=== PATIENT | male | born 1995 | race Caucasian/White ===

== ENCOUNTER 2024-04-01 13:55 | Emergency (ER) | payer OTHER ==
[~2024-04-01] VITALS: Ht 185.4 cm; Wt 88.7 kg
[2024-04-01 13:58] VITALS: BP 153/83; TEMP 97.8; O2SAT 99
[2024-04-01] MEDS ORDERED: ACET-683 PO (14:05)
== END 2024-04-01 17:10 | disposition left against medical advice (07) ==
LOC: M ED 13:55
DX: Z53.21 Procedure and treatment not carried out due to patient leaving prior to being seen by health care provider (principal)